=== PATIENT | female | born 1980 | race Caucasian/White ===

== ENCOUNTER 2020-02-12 18:00 | Observation (INO) ==
[2020-02-12] MEDS ORDERED: Morphine Sulfate 2 MG/ML SYRINGE IVP ONE ×2 (18:16→19:14)
[2020-02-12] MEDS ORDERED: Ondansetron 4 MG/2 ML VIAL IVP ONE ×2 (18:16→21:15)
[2020-02-12 18:24] LABS: Basophils # 0.1 K/mcL (0.0-0.2); Basophils % 0.6 %; Eosinophils # 0.3 K/mcL (0.0-0.6); Eosinophils % 2.4 %; Hematocrit 43.3 % (35.3-44.9); Hemoglobin 14.9 g/dL (11.5-15.4); Immature Granulocytes % 0.3 % (0-4); Lymphocytes # 3.5 K/mcL (0.6-4.6); Lymphocytes % 30.8 %; Mean Corpuscular HGB Conc 34.4 g/dL (31.6-35.5); Mean Corpuscular Hemoglobin 32.5 pg (28.0-33.3); Mean Corpuscular Volume 94.3 fL (83.0-100.0); Mean Platelet Volume 10.7 fL (9.4-12.4); Monocytes # 0.7 K/mcL (0.0-1.3); Neutrophils # 6.8 K/mcL (1.6-8.9); Platelet Count 308 K/mcL (140-400); Red Blood Count 4.59 M/mcL (3.82-4.97); Segmented Neutrophils % 59.9 %; White Blood Count 11.4 K/mcL (4.3-11.1)
[2020-02-12 18:49] LABS: BUN/Creatinine Ratio 16 (6-26); Blood Urea Nitrogen 9 mg/dL (6-20); Calcium 8.9 mg/dL (8.6-10.3); Carbon Dioxide 26 mEq/L (23-29); Chloride 106 mEq/L (98-107); Glucose 96 mg/dL (70-105); Osmolality,Calculated 285 (280-300); Potassium 3.9 mEq/L (3.5-5.1); Sodium 138 mEq/L (136-145); eGFR For African Americans > 60 (> 60); eGFR For Non-African Americans > 60 (> 60)
[2020-02-12 18:50] LABS: Troponin I < 0.03 ng/mL (< 0.04)
[2020-02-12] MEDS ORDERED: Isovue-370 500 ML BOTTLE IVP ONE (19:06)
[2020-02-12] MEDS ORDERED: Ketorolac 15 MG/ML VIAL IVP ONE (20:43)
[2020-02-12] MEDS ORDERED: Ondansetron 4 MG/2 ML VIAL IVP PRN (21:13)
[2020-02-12] MEDS ORDERED: Naloxone 0.4 MG/ML INJ IVP PRN (21:13)
[2020-02-12] MEDS ORDERED: Morphine Sulfate 2 MG/ML SYRINGE IVP PRN (22:23)
[2020-02-12] MEDS ORDERED: 0.9 % Sodium Chloride 500 ML ONE (22:41)
[2020-02-13] MEDS ORDERED: 0.9 % Sodium Chloride 1,000 ML IVC SCH (02:15)
[2020-02-13 06:26] LABS: Hematocrit 39.5 % (35.3-44.9); Mean Corpuscular HGB Conc 32.9 g/dL (31.6-35.5); Mean Corpuscular Hemoglobin 31.5 pg (28.0-33.3); Mean Corpuscular Volume 95.6 fL (83.0-100.0); Platelet Count 285 K/mcL (140-400); Red Blood Count 4.13 M/mcL (3.82-4.97); Red Cell Distribution Width 13.1 % (11.5-14.5); White Blood Count 10.4 K/mcL (4.3-11.1)
[2020-02-13 06:43] LABS: Alanine Aminotransferase 11 Units/L (7-52); Albumin 3.9 g/dL (3.5-5.7); Albumin/Globulin Ratio 1.6 (1.1-2.2); Alkaline Phosphatase 66 Units/L (34-104); Aspartate Amino Transferase 14 Units/L (13-39); BUN/Creatinine Ratio 20 (6-26); Bilirubin,Total 0.3 mg/dL (0.3-1.0); Blood Urea Nitrogen 13 mg/dL (6-20); Calcium 7.9 mg/dL (8.6-10.3); Carbon Dioxide 24 mEq/L (23-29); Chloride 108 mEq/L (98-107); Globulin 2.5 g/dL (2.4-3.5); Glucose 90 mg/dL (70-105); Magnesium 1.9 mg/dL (1.6-2.6); Osmolality,Calculated 288 (280-300); Phosphorous 4.2 mg/dL (2.7-4.5); Potassium 3.8 mEq/L (3.5-5.1); Sodium 139 mEq/L (136-145); Total Protein 6.4 g/dL (6.4-8.9); Troponin I < 0.03 ng/mL (< 0.04); eGFR For African Americans > 60 (> 60); eGFR For Non-African Americans > 60 (> 60)
[2020-02-13] MEDS ORDERED: Aspirin Enteric Coated 81 MG Tablet PO SCH (09:00)
[2020-02-13] MEDS ORDERED: Perflutren Lipid Microsphere 1.3 ML in 0.9 % Sodium Chloride 8.7 ML IVP PRN (09:34)
[2020-02-13] MEDS ORDERED: *HR* Heparin 5,000 UNIT/ML VIAL IVP ONE (10:34)
[2020-02-13] MEDS ORDERED: *HR* Heparin 5,000 UNIT/ML VIAL IVP PRN ×2 (10:34)
[2020-02-13] MEDS ORDERED: Heparin 25,000 UNIT/250 ML D5W 25,000 UNIT/250 ML IV.SOLN IVC SCH (10:45)
[2020-02-13 11:33] LABS: Hematocrit 39.1 % (35.3-44.9); Hemoglobin 12.9 g/dL (11.5-15.4); Mean Corpuscular Hemoglobin 31.5 pg (28.0-33.3); Mean Corpuscular Volume 95.4 fL (83.0-100.0); Mean Platelet Volume 10.8 fL (9.4-12.4); Platelet Count 274 K/mcL (140-400); White Blood Count 9.5 K/mcL (4.3-11.1)
[2020-02-13 11:42] LABS: Prothrombin Time 11.9 Seconds (9.4-12.1)
[2020-02-13 11:43] LABS: Heparin anti-factor XA UFH < 0.04 IU/mL (0.30-0.70)
[2020-02-13 13:51] VITALS: BP 135/83
== END 2020-02-13 13:50 | disposition left against medical advice (07) ==
LOC: 3BNU 18:00 → EMEROOARM 18:00 → SUATTDRO 21:14 → 3BNU 21:35
PROVIDERS: ADMIT Family Medicine; ATTEND Internal Medicine